=== PATIENT | male | born 1990 | race American Indian/Alaskan Native ===

== ENCOUNTER 2017-07-06 13:07 | Emergency (ER) | payer OTHER ==
[2017-07-06 13:54] LABS: Basophils % (Auto) 0.2 % (0.0-1.8); Eosinophils # (Auto) 0.2 K/mm3 (0.0-0.4); Eosinophils % (Auto) 2.8 % (0.0-4.3); Hematocrit 45.5 % (35.5-45.6); Hemoglobin 15.5 gm/dl (11.8-15.2); Lymphocytes # (Auto) 1.6 K/mm3 (1.2-5.4); Lymphocytes % (Auto) 30.3 % (13.4-35.0); Mean Corpuscular HGB Conc 34 % (32-34); Mean Corpuscular Hemoglobin 31 pg (28-32); Mean Corpuscular Volume 92 fl (84-94); Monocytes # (Auto) 0.6 K/mm3 (0.0-0.8); Monocytes % (Auto) 11.8 % (0.0-7.3); Platelet Count 246 K/mm3 (140-440); Red Blood Count 4.93 M/mm3 (3.65-5.03); Red Cell Distribution Width 13.8 % (13.2-15.2)
[2017-07-06 14:32] LABS: Alanine Aminotransferase 16 units/L (7-56); Albumin 3.8 g/dL (3.9-5); BUN/Creatinine Ratio 7; Blood Urea Nitrogen 6 mg/dL (9-20); Calcium 8.4 mg/dL (8.4-10.2); Hemolysis Index 13
--- NOTE | 2017-07-06 15:29 | Emergency Department Report ---
Blank Doc - Documentation Documentation: Patient is a 26-year-old [place] male who is complaining of left lower quadrant pain. Patient states he gets pain in this area frequently. 2011 patient was diagnosed with suspected diverticulitis however he underwent a colonoscopy which was negative. Patient states the last several days he's had some increased pain and left lower quadrant again. Patient's laboratory studies are within normal limits. X-ray of the abdomen will be performed
--- NOTE | 2017-07-06 15:46 | Emergency Department Report ---
ED Abdominal Pain HPI - General Chief Complaint: Abdominal Pain Stated Complaint: ABD PAIN Time Seen by Provider: 07/06/17 15:03 Source: patient Mode of arrival: Ambulatory Limitations: No Limitations - History of Present Illness Initial Comments: Patient is a 26-year-old Turk[place] male who is complaining of left lower quadrant pain. Patient states he gets pain in this area frequently. 2011 patient was diagnosed with suspected diverticulitis however he underwent a colonoscopy which was negative. Patient states the last several days he's had some increased pain and left lower quadrant again. Patient denies any fever or chills. Pain is 9 out of 10 and cramping. Denies any back pain. Denies any urinary frequency urgency or burning. Denies any penile discharge or concern for STDs. He said he has a bowel movement daily. Denies any nausea or vomiting. Denies diarrhea. Pain is worse with movement and palpation and better with rest. MD Complaint: abdominal pain Onset/Timin -: year(s) (worsening over the last few days.) Location: [facility] Radiation: none Migration to: no migration Severity: severe Severity scale (0 -10): 9 Quality: cramping Consistency: intermittent Improves With: rest Worsens With: movement, other (palpation) Context: other (this is chronic) Associated Symptoms: denies: nausea, vomiting, diarrhea, fever, chills, constipation, dysuria, hematemesis, hematochezia, melena, hematuria, anorexia, syncope Treatments Prior to Arrival: other (none) - Related Data Previous Rx's Medication Instructions Recorded Last Taken Type Bisacodyl [Dulcolax] 10 mg PO DAILY PRN 2 Days #4 tab 07/06/17 Unknown Rx Ciprofloxacin HCl [Cipro] 500 mg PO Q12H 10 Days #20 tablet 07/06/17 Unknown Rx Ondansetron [Zofran Odt] 4 mg PO Q8H PRN #12 tab.rapdis 07/06/17 Unknown Rx Allergies Allergy/AdvReac Type Severity Reaction Status Date / Time No Known Allergies Allergy Unverified 07/06/17 13:34 ED Review of Systems ROS: Stated complaint: ABD PAIN Other details as noted in HPI Comment: All other systems reviewed and negative Constitutional: no symptoms reported ENT: denies: throat pain Respiratory: no symptoms reported Cardiovascular: denies: chest pain, palpitations, dyspnea on exertion, edema, syncope, paroxysmal nocturnal dyspnea Gastrointestinal: abdominal pain. denies: nausea, vomiting, diarrhea, constipation, hematemesis, melena, hematochezia Genitourinary: denies: urgency, dysuria, frequency, hematuria, discharge, testicular pain, testicular mass Musculoskeletal: denies: back pain Skin: denies: rash Neurological: denies: headache, numbness, paresthesias, abnormal gait ED Past Medical Hx - Past Medical History Previous Medical History?: Yes Additional medical history: Chronic abdominal pain - Surgical History Past Surgical History?: Yes Additional Surgical History: shoulder - Family History Family history: no significant - Social History Smoking Status: Current Every Day Smoker Substance Use Type: Alcohol - Medications Home Medications: Home Medications Medication Instructions Recorded Confirmed Last Taken Type Bisacodyl [Dulcolax] 10 mg PO DAILY PRN 2 Days #4 tab 07/06/17 Unknown Rx Ciprofloxacin HCl [Cipro] 500 mg PO Q12H 10 Days #20 tablet 07/06/17 Unknown Rx Ondansetron [Zofran Odt] 4 mg PO Q8H PRN #12 tab.rapdis 07/06/17 Unknown Rx ED Physical Exam - General Limitations: No Limitations General appearance: alert, in no apparent distress - Head Head exam: Present: atraumatic, normocephalic, normal inspection - Eye Eye exam: Present: normal appearance, PERRL, EOMI Pupils: Present: normal accommodation - ENT ENT exam: Present: normal exam, mucous membranes moist, TM's normal bilaterally , normal external ear exam - Neck Neck exam: Present: normal inspection, full ROM, other (no C-spine tenderness). Absent: tenderness, meningismus, lymphadenopathy - Respiratory Respiratory exam: Present: normal lung sounds bilaterally. Absent: respiratory distress, chest wall tenderness - Cardiovascular Cardiovascular Exam: Present: regular rate, normal rhythm, normal heart sounds - GI/Abdominal GI/Abdominal exam: Present: soft, tenderness (left lower quadrant), normal bowel sounds. Absent: distended, guarding, rebound, rigid, organomegaly, mass, bruit, pulsatile mass, hernia - Extremities Exam Extremities exam: Present: normal inspection, full ROM, normal capillary refill , other (no clubbing, cyanosis or edema. +2 pulses all extremities and no neurovascular compromise). Absent: tenderness, pedal edema, joint swelling, calf tenderness - Back Exam Back exam: Present: normal inspection, full ROM, other (ambulates without any difficulties). Absent: tenderness, CVA tenderness (R), CVA tenderness (L), muscle spasm, paraspinal tenderness, vertebral tenderness, rash noted - Neurological Exam Neurological exam: Present: alert, oriented X3, normal gait - Psychiatric Psychiatric exam: Present: normal affect, normal mood - Skin Skin exam: Present: warm, dry, intact, normal color. Absent: rash ED Course Vital Signs 07/06/17 13:34 Temperature 99 F Pulse Rate 77 Respiratory 18 Rate Blood Pressure 120/85 O2 Sat by Pulse 100 Oximetry - Reevaluation(s) Reevaluation #1: 07/06/17 17:07 Patient give Toradol 30 mg IM and Zofran 4mg ODT for abdominal pain. ED Medical Decision Making - Lab Data Result diagrams: 07/06/17 13:40 07/06/17 13:40 Lab Results 07/06/17 07/06/17 07/06/17 Range/Units 13:40 13:40 13:40 WBC 5.4 (4.5-11.0) K/mm3 RBC 4.93 (3.65-5.03) M/mm3 Hgb 15.5 H (11.8-15.2) gm/dl Hct 45.5 (35.5-45.6) % MCV 92 (84-94) fl MCH 31 (28-32) pg MCHC 34 (32-34) % RDW 13.8 (13.2-15.2) % Plt Count 246 (140-440) K/mm3 Lymph % (Auto) 30.3 (13.4-35.0) % Randall % (Auto) 11.8 H (0.0-7.3) % Eos % (Auto) 2.8 (0.0-4.3) % Baso % (Auto) 0.2 (0.0-1.8) % Lymph # 1.6 (1.2-5.4) K/mm3 Randall # 0.6 (0.0-0.8) K/mm3 Eos # 0.2 (0.0-0.4) K/mm3 Baso # 0.0 (0.0-0.1) K/mm3 Seg Neutrophils % 54.9 (40.0-70.0) % Seg Neutrophils # 3.0 (1.8-7.7) K/mm3 Sodium 139 (137-145) mmol/L Potassium 3.9 (3.6-5.0) mmol/L Chloride 100.0 (98-107) mmol/L Carbon Dioxide 27 (22-30) mmol/L Anion Gap 16 mmol/L BUN 6 L (9-20) mg/dL Creatinine 0.9 (0.8-1.5) mg/dL Estimated GFR > 60 ml/min BUN/Creatinine Ratio 7 % Glucose 108 H (75-100) mg/dL Calcium 8.4 (8.4-10.2) mg/dL Total Bilirubin 0.30 (0.1-1.2) mg/dL AST 20 (5-40) units/L ALT 16 (7-56) units/L Alkaline Phosphatase 89 (35-129) units/L Total Protein 7.4 (6.3-8.2) g/dL Albumin 3.8 L (3.9-5) g/dL Albumin/Globulin Ratio 1.1 % HCG, Qual Negative (Negative) Urine Color (Yellow) Urine Turbidity (Clear) Urine pH (5.0-7.0) Ur Specific [place] (1.003-1.030) Urine Protein (Negative) mg/dL Urine Glucose (UA) (Negative) mg/dL Urine Ketones (Negative) mg/dL Urine Blood (Negative) Urine Nitrite (Negative) Urine Bilirubin (Negative) Urine Urobilinogen (<2.0) mg/dL Ur Leukocyte Esterase (Negative) Urine WBC (Auto) (0.0-6.0) /HPF Urine RBC (Auto) (0.0-6.0) /HPF Urine Bacteria (Auto) (Negative) /HPF Urine Mucus /HPF 07/06/17 Range/Units 15:45 WBC (4.5-11.0) K/mm3 RBC (3.65-5.03) M/mm3 Hgb (11.8-15.2) gm/dl Hct (35.5-45.6) % MCV (84-94) fl MCH (28-32) pg MCHC (32-34) % RDW (13.2-15.2) % Plt Count (140-440) K/mm3 Lymph % (Auto) (13.4-35.0) % Randall % (Auto) (0.0-7.3) % Eos % (Auto) (0.0-4.3) % Baso % (Auto) (0.0-1.8) % Lymph # (1.2-5.4) K/mm3 Randall # (0.0-0.8) K/mm3 Eos # (0.0-0.4) K/mm3 Baso # (0.0-0.1) K/mm3 Seg Neutrophils % (40.0-70.0) % Seg Neutrophils # (1.8-7.7) K/mm3 Sodium (137-145) mmol/L Potassium (3.6-5.0) mmol/L Chloride (98-107) mmol/L Carbon Dioxide (22-30) mmol/L Anion Gap mmol/L BUN (9-20) mg/dL Creatinine (0.8-1.5) mg/dL Estimated GFR ml/min BUN/Creatinine Ratio % Glucose (75-100) mg/dL Calcium (8.4-10.2) mg/dL Total Bilirubin (0.1-1.2) mg/dL AST (5-40) units/L ALT (7-56) units/L Alkaline Phosphatase (35-129) units/L Total Protein (6.3-8.2) g/dL Albumin (3.9-5) g/dL Albumin/Globulin Ratio % HCG, Qual (Negative) Urine Color Yellow (Yellow) Urine Turbidity Clear (Clear) Urine pH 7.0 (5.0-7.0) Ur Specific [place] 1.021 (1.003-1.030) Urine Protein <15 mg/dl (Negative) mg/dL Urine Glucose (UA) Neg (Negative) mg/dL Urine Ketones Neg (Negative) mg/dL Urine Blood Neg (Negative) Urine Nitrite Neg (Negative) Urine Bilirubin Neg (Negative) Urine Urobilinogen 2.0 (<2.0) mg/dL Ur Leukocyte Esterase Mod (Negative) Urine WBC (Auto) 44.0 H (0.0-6.0) /HPF Urine RBC (Auto) 8.0 (0.0-6.0) /HPF Urine Bacteria (Auto) 1+ (Negative) /HPF Urine Mucus 2+ /HPF Urine culture pending - Radiology Data Radiology results: report reviewed Abdominal 1 view x-ray revealed patient with nonspecific bowel gas pattern. Syncope exam cannot exclude free air. A typical appearance of the lateral right iliac wing may be partially positional. Patient also with scattered stool and air throughout the stomach and colon. Moderate stool in the sigmoid and rectum. - Medical Decision Making ED course: Patient is here with left lower quadrant abdominal pain which has been ongoing on and off for the past 6 years. He has had a colonoscopy in 2011 which did not show any abnormality. Patient said he needs to be referred to primary care and box office clerk in [place] as he just moved here. Physical findings are tenderness to palpate to left lower quadrant of her abdomen. Urinalysis reveals patient with moderate amount of leukocyte esterase, positive white count and positive bacteria. Patient did not wanted to be tested for STD and that he wasn't concerned but agrees to be treated. Patient given Toradol 30 mg IM for abdominal pain, Zofran 4 mg ODT. He was treated for STD with azithromycin 1 g by mouth to treat chlamydia, Flagyl 2 g by mouth to treat Trichomonas and Rocephin 1 g IM this will cover gonorrhea and UTI. CBC stable and chemistry stable. Urine culture sent. I discussed laboratory results and abdominal x-ray results the patient and he voiced understand discharge instructions, treatment plan and needed follow-up. X-ray of abdomen showed patient with moderate stool and colon therefore he'll be treated for constipated , UTI and abdominal pain. Patient discharged home and voiced understanding the discharge instructions and treatment plan and discharged home in safe condition with prescription for Motrin, Dulcolax tablet for constipation, Zofran for nausea and ciprofloxacin for urinary tract infection. I discussed the patient he needs to follow up with primary care and box office clerk and discharge instruction paperwork. Critical care attestation.: If time is entered above; I have spent that time in minutes in the direct care of this critically ill patient, excluding procedure time. ED Disposition Clinical Impression: Possible exposure to STD UTI (urinary tract infection) Qualifiers: Urinary tract infection type: acute cystitis Hematuria presence: without hematuria Qualified Code(s): N30.00 - Acute cystitis without hematuria Abdominal pain Qualifiers: Abdominal location: left lower quadrant Qualified Code(s): R10.32 - Left lower quadrant pain Constipation Qualifiers: Constipation type: unspecified constipation type Qualified Code(s): K59.00 - Constipation, unspecified Disposition: DC- TO HOME OR SELFCARE Is pt being admited?: No Does the pt Need Aspirin: No Condition: Stable Instructions: Safe Sex (ED), Sexually Transmitted Diseases (ED), Abdominal Pain (ED), Urinary Tract Infection in Men (ED), High Fiber Diet (ED), Constipation (ED) Additional Instructions: Please increase your water intake to 2-3 L per day. Follow-up with primary care and also box office clerk and please refer to discharge instruction paperwork for phone number and address. Take Dulcolax tablet for constipation Take Zofran if you develop nausea Prophylaxis plan is for urinary tract infection You were treated in emergency room with Rocephin, Zithromax and Flagyl which cover gonorrhea ,chlamydia and Trichomonas. You can go to the health department in 7-10 days to be checked for STD and repeat urinalysis. He can also call our [facility] physician that was referred here to schedule an appointment and have the testing done. His refrain from having sexual activity over the next 2 weeks Not drink alcohol over the next 5 days as medication given for STD can interact negatively with alcohol and cause stomach upset. Prescriptions: Bisacodyl [Dulcolax] 10 mg PO DAILY PRN 2 Days #4 tab PRN Reason: Constipation Ciprofloxacin HCl [Cipro] 500 mg PO Q12H 10 Days #20 tablet Ondansetron [Zofran Odt] 4 mg PO Q8H PRN #12 tab.rapdis PRN Reason: Nausea And Vomiting Referrals: [facility] [Provider Group] - 07/08/17 FINESSE RODNEY MD [Staff Physician] - 07/08/17 [facility] [Outside] - 07/08/17 Forms: Accompanied Note, Work/School Release Form(ED)
[2017-07-06 16:06] LABS: Bacteria,Urine 1+ /HPF (Negative); Bilirubin,Urine NEG (Negative); Blood,Urine NEG (Negative); Color,Urine Yellow (Yellow); Mucus,Urine 2+ /HPF; Protein,Urine <15 mg/dL mg/dL (Negative)
--- NOTE | 2017-07-06 16:31 | XRay Report ---
FINAL REPORT EXAM: XR ABDOMEN 1V AP HISTORY: LLQ pain' TECHNIQUE: Single view of the abdomen Comparison: None FINDINGS: Clear lung bases. Scattered stool and air throughout the stomach and colon. Moderate stool in the sigmoid and rectum. No suspicious calcifications. IMPRESSION: Moderate stool. Nonspecific bowel gas pattern. Single-view exam, cannot exclude free air. Atypical appearance of the lateral right iliac wing may be partly positional .
[2017-07-06] MEDS ORDERED: ZOFRAN ODT PO ONE (17:07)
[2017-07-06] MEDS ORDERED: TORADOL IM ONE (17:07)
[2017-07-06] MEDS ORDERED: ROCEPHIN IM STA (17:08)
[2017-07-06] MEDS ORDERED: XYLOCAINE 1% MPF 5 mL INFILTRATI ONE (17:09)
[2017-07-06] MEDS ORDERED: FLAGYL PO ONE (17:09)
[2017-07-06] MEDS ORDERED: ZITHROMAX PO ONE (17:09)
[2017-07-06 17:49] VITALS: BP 118/72
== END 2017-07-06 17:49 | disposition home or self-care (01) ==
LOC: ED 13:07
DX: N39.0 Urinary tract infection, site not specified (principal); K59.00 Constipation, unspecified; F17.200 Nicotine dependence, unspecified, uncomplicated; G89.29 Other chronic pain; R10.32 Left lower quadrant pain
CPT/HCPCS: 36415; 74018; 80053; 81001; 84703; 85025; 87086; 96372; 99284; J0696; J1885; Q0162